=== PATIENT | female | born 1980 | race Caucasian/White ===

== ENCOUNTER 2022-08-03 15:39 | Emergency (ER) | payer OTHER, SELFPAY ==
--- NOTE | ~2022-08-03 | CT_ITS ---
EXAMINATION: CT abdomen pelvis wo con DATE: 08/03/2022 17:51 INDICATION: Back pain and hematuria TECHNIQUE: Computed tomography (CT) of the abdomen and pelvis was performed without intravenous contr ast. The dose-length product (DLP) was 691.81 mGy-cm. Automated exposure control and iterative recons truction technique were employed. COMPARISON: None FINDINGS: The lung bases are clear. The heart size is normal. The liver, spleen, pancreas, and adrena l glands are normal. The gallbladder is contracted. The kidneys are unremarkable. No pathologically e nlarged abdominal or pelvic lymph nodes are identified. The appendix is normal. A moderate volume of colonic stool is present. There is no free intraperitoneal gas or evidence of bowel obstruction. Ther e is formed stool in the nondistended terminal ileum. There is an umbilical hernia containing fat. IMPRESSION: 1. Constipation. Reviewed, dictated and finalized at location F. IMPRESSION: 1. Constipation.
[2022-08-03 16:00] VITALS: BP 152/85; PULSE 101; RESP 14; TEMP 36.6; O2SAT 100
--- NOTE | 2022-08-03 16:30 | PC.NURSE ---
Patient to the ED with complaints of middle back pain for about a year . Patient states she has asked doctors about it but has not gotten relief for it.
--- NOTE | 2022-08-03 16:58 | ED.BACK ---
HPI - Back Pain/Injury General Chief Complaint: Back Pain/Injury Stated Complaint: chronic back pain Time Seen by Provider: 08/03/22 16:33 History of Present Illness HPI Narrative: 41-year-old female with history of back pain for the last 10 years presents to the emergency department complaining of worsening back pain. Patient states over the last few years she has had intermittent back pain. Patient states she has had imaging previously. Patient denies any acute injuries. Patient states over the last few days she has had worsening back pain and today she was attempting to go through a pump convention and her back pain was so bad that she needed to be evaluated. Patient has been taking Tylenol and ibuprofen intermittently for pain. Patient states she has had pain that runs down her leg but denies any current leg pain. Patient states he is also had intermittent numbness. Patient has no prior history of back surgery. Related Data Allergies Allergy/AdvReac Type Severity Reaction Status Date / Time No Known Allergies Allergy Verified 11/02/20 11:55 Review of Systems Review of Systems: CONSTITUTIONAL: Denies fever, chills, or sweats. EYES: Denies visual changes, redness, or discharge. ENT: Denies rhinorrhea, congestion, sore throat, or otalgia. CARDIOVASCULAR: Denies chest pain, palpitations, or edema. RESPIRATORY: Denies cough or dyspnea. GASTROINTESTINAL: Denies abdominal pain, nausea, vomiting, or diarrhea. GENITOURINARY: Denies dysuria or hematuria. SKIN: Denies rash or itching. MUSCULOSKELETAL: See HPI NEUROLOGIC: Denies headache, numbness, or weakness. PSYCHIATRIC: Denies anxiety or depression. [facility] Past Medical History Medical History (Updated 08/03/22 @ 18:18 by Mingo Young MD) Chlamydia Depression Surgical History Surgical History History of robot-assisted laparoscopic hysterectomy Family History Family History Father Hypertension Grandparent Cerebrovascular accident Other Family history of coronary artery disease Social History Social History Smoking status: Current every day smoker Second hand tobacco smoke exposure: No Alcohol intake: current Exam Narrative: APPEARANCE: Well appearing, no pain, no distress, well-nourished. HEAD: normocephalic, atraumatic. EYES: PERRLA/EOMI, conjunctivae clear. NOSE: Normal no drainage NECK: Supple. No adenopathy, no masses. RESPIRATORY: Airway patent, respirations nonlabored. Clear to auscultation bilaterally, no rales, rhonchi, wheezing. CARDIOVASCULAR: Regular rate and rhythm without murmurs rubs or gallops. ABDOMINAL: Soft, nontender, nondistended, normal bowel sounds MUSCULOSKELETAL: Moves all extremities. Strength/ROM intact, No edema, No calf tenderness. Some midline back tenderness to palpation. NEURO: Alert. Cranial nerves II through XII intact. Grossly intact. Normal strength and reflexes. SKIN: Warm, dry. Normal Color Course Course Emergency Course: Patient's UA showed no evidence of infection but did have some hematuria. CT scan was ordered to rule out ureteral lithiasis. CT scan showed evidence of constipation. Patient was advised treatment of her back pain at home along with treating of her constipation. Patient was updated results of her imaging. All question concerns were addressed Vital Signs Vital signs: Vital Signs Temperature 97.9 F 08/03/22 16:00 Pulse Rate 101 H 08/03/22 16:00 Respiratory Rate 14 08/03/22 16:00 Blood Pressure 152/85 H 08/03/22 16:00 Pulse Oximetry 100 08/03/22 16:00 Oxygen Delivery Room Air 08/03/22 16:00 Temperature 97.8 F 08/03/22 18:21 Pulse Rate 89 08/03/22 18:21 Respiratory Rate 18 08/03/22 18:21 Blood Pressure 139/88 08/03/22 18:21 Pulse Oximetry 100 08/03/22 18:21 Oxygen Delivery Room
[2022-08-03 17:30] LABS: Add Urine Microscopic? YES; Appearance Urine Cloudy (Clear); Bilirubin Urine Negative (Negative); Blood Urine 2+ (Negative); Color Urine Yellow (Yellow); Glucose Urine UA Negative (Negative); Ketones Urine Negative (Negative); Leukocyte Esterase Ur Negative LEU/UL (Negative); Mucus Urine Rare /lpf; Nitrate Urine Negative (Negative); Protein Urine Negative (Negative); Specific Grav Ur 1.018 (1.001-1.035); Squamous Epithelial Cell Urine Moderate /hpf (Few); Urobilinogen Urine Negative mg/dL (<2.0); WBC Urine 0-3 /hpf
[2022-08-03 17:46] LABS: Pregnancy On Board Control Positive; Urine Pregnancy Test Negative
[2022-08-03 18:21] VITALS: BP 139/88; PULSE 89; RESP 18; TEMP 36.6; O2SAT 100
== END 2022-08-03 18:27 | disposition home or self-care (01) ==
PROVIDERS: Emergency Provider Emergency Medicine; PCP Physician Assistant
DX: M54.50 Low back pain, unspecified (principal); K59.00 Constipation, unspecified; F17.200 Nicotine dependence, unspecified, uncomplicated
CPT/HCPCS: 74176; 81001; 81025; 99284

== ENCOUNTER 2024-08-12 18:24 | Emergency (ER) | payer MEDICAID, SELFPAY ==
--- NOTE | ~2024-08-12 | CT_ITS ---
EXAMINATION: 1. CT facial & cervical spine wo DATE: 08/12/2024 19:31 INDICATION: Head injury with facial/dental injury. TECHNIQUE: 1. Computed tomography (CT) of the maxillofacial region and of the cervical spine were performed with out intravenous contrast. Sagittal and coronal reconstructions of both regions were obtained. Automat ed exposure control and iterative reconstruction technique were employed. The dose-length product was 420.96 mGy-cm. COMPARISON: None. FINDINGS: Maxillofacial CT: The bilateral maxillary central incisors are loose within their sockets with the roots displaced slig htly anteriorly and inferiorly. In minimal displacement of a transverse fracture which extends from f rom the anterior to the posterior margin of both of the sockets and across the bone between the socke ts of both incisors. There is scattered dental disease most prominent at the left maxillary canine an d multiple bilateral maxillary molars and premolars with associated prominent periapical lucencies. B ilateral temporal manubrial joints are normal alignment. No other maxillofacial fractures identified. Specifically the mandible, nasal bones, zygomatic arches and oquendo of the orbits and paranasal sinus es are all intact. There are a few small mucous retention cyst in the bilateral maxillary sinuses. Or bits are normal. There is slight rightward bowing of the anterior nasal septum without fracture. Ther e is soft tissue swelling at the central aspect of the upper lip. Cervical spine CT: Alignment is normal. Vertebral body heights are normal. No fracture. Severe disc height loss at C6-C7 with posterior endplate osteophytes resulting in mild central canal stenosis at this level. Remainin g disc heights are normal. Severe facet osteoarthritis on the right at C2-C3. Moderate facet osteoart hritis on the left at C2-C3 and bilaterally at C3-C4. Mild facet osteoarthritis and more caudal cervi jewel spine. There is also multilevel minimal to mild cervical uncovertebral osteoarthritis. Minimal ne ural foraminal stenosis at a few levels. Cervical soft tissues are unremarkable. Visualized upper odalis gs are clear. IMPRESSION: 1. Fracture involving the sockets of the left and right central maxillary incisors which are lucent t heir sockets. No other maxillofacial fractures. 2. Significant dental disease or posteriorly at the left and right maxilla. 3. Severe disc height loss posterior endplate osteophytic resulting in mild central canal stenosis at C6-C7. Otherwise minimal to mild cervical spondylosis. Reviewed, dictated and finalized at location A. IMPRESSION: 1. Fracture involving the sockets of the left and right central maxillary incis ors which are lucent their sockets. No other maxillofacial fractures. 2. Significant dental disease or posteriorly at the left and right maxilla. 3. Severe disc height loss posterior endplate osteophytic resulting in mild aye tral canal stenosis at C6-C7. Otherwise minimal to mild cervical spondylosis.
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
[2024-08-12 18:32] VITALS: BP 158/86; PULSE 95; RESP 20; TEMP 36.7; O2SAT 100
[2024-08-12] MEDS: ACETAMINOPHEN 500 MG TABLET 1000 MG PO (19:20)
[2024-08-12] MEDS: TETANUS,DIPHTHERIA,AC PERTUSSIS ADULT (0.5 ML) BOOSTRIX IM (19:20)
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
[2024-08-12 21:14] VITALS: BP 146/82; PULSE 88; RESP 16; O2SAT 100
[2024-08-12 22:50] VITALS: BP 132/78; PULSE 82; RESP 19; O2SAT 99
== END 2024-08-12 22:50 | disposition home or self-care (01) ==
PROVIDERS: Emergency Provider Physician Assistant; PCP Physician Assistant
DX: S02.42XA Fracture of alveolus of maxilla, initial encounter for closed fracture (principal); S01.511A Laceration without foreign body of lip, initial encounter; Z23 Encounter for immunization; F17.200 Nicotine dependence, unspecified, uncomplicated; Z90.710 Acquired absence of both cervix and uterus; M48.02 Spinal stenosis, cervical region; M47.812 Spondylosis without myelopathy or radiculopathy, cervical region; Y04.2XXA Assault by strike against or bumped into by another person, initial encounter
CPT/HCPCS: 70450; 70486; 72125; 90471; 90715; 99284; A9270

== ENCOUNTER 2025-06-23 13:12 | Emergency (ER) | payer OTHER, SELFPAY ==
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
[2025-06-23 13:18] VITALS: BP 157/81; PULSE 95; RESP 16; TEMP 36.6; O2SAT 100
--- OUTSIDE RECORDS SUMMARY | 2025-06-23 13:24 | XMS_ITS | Encounter Summary ---
Author Organization [facility] Address [address] [place] [address] Care Team Providers Care Temperature Regulator Name Role Phone Unavailable Primary Care Provider Unavailabl e Reason for Visit * Reason Onset Date Comments General 01/07/2019 Encounter Details Date Type Department Care Team (Late st Contact Info) Description 01/07/2019 Telephone [facility]/ EVALUATION UNIT [address] [facility] [place] [address] Kalie Bell RN General Social History Tobacco Use Types Packs/Day Years Used Date Smoking Tobacco: Every Day Cigarettes Smokeless Tobacco: Never Alcohol Use Standard Drinks/Week Comments No 0 (1 standard drink = 0.6 oz pur e alcohol) Comments Yes Sex and Gender Information Value Date Recorded Sex Assigned at Not on file Legal Sex Female 6:32 AM CDT Gender Identity Not on file Sexual Orientation Not on file documented as of this encounter Miscellaneous Notes * Telephone Encounter - Kalie Morales RN - 01/07/2019 9:34 AM CDT Avelina called on behalf of patient for Albuterol inhaler refill. OK per Dr. Kim for 1 refill. Communicated to pharmacist. documented in this encounter Plan of Treatment Not on file documented as of this encounter Visit Diagnoses Not on filedocumented in this encounter
--- OUTSIDE RECORDS SUMMARY | 2025-06-23 13:24 | XMS_ITS | Clinical Summary ---
Author Organization [facility] Address [address] [place] [address] Care Team Providers Care [place] Teacher Name Role Phone Unavailable Primary Care Provider Unavailabl e Source Comments [facility],non-owned Affiliates and Associated Physician Practices is amultiple site organization consisting of ambulatory clinics and hospital sitesin [place], [place], [place] and [place]. This disclosure is being madepursuant to the Care Everywhere program and may not contain all information available regarding this patient. Last updated 18.[facility] Allergies No known active allergies Medications * Be aware that medications may not be up to date on this document. Alwaysverify current medications with the patient. Vit-Fe Fumarate-FA ( VITAMIN) 28-0.8 MG tablet Take 1 tablet by mouth once daily Active albuterol HFA (PROAIR HFA) 108 (90 BASE) MCG/ACT inhalerIndication s:Severe persistent asthma without complication (HCC),Supervision of high risk in first trimester (HCC),Maternal asthma complicating (HCC) Inhale 2 puffs by mouth every 2 hours as needed for Shortness of Breath or Wheezing 8 g 3 8 Active loratadine (CLARITIN) 10 MG tabletIndications :Severe persistent asthma without complication (HCC),Supervision of high risk in first trimester (HCC),Maternal asthma complicating (HCC) Take 1 tablet by mouth once daily 30 tablet 3 8 Active Active Problems Patient Care Coordination No te Formatting of this note migh t be different from the original. 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 Dodd's office Nuchal translucency normal on day of visit (11w5d) Recommend twice weekly testing initiated at 32 weeks gestation Supervision of high risk in first trim mario 06/13/2018 Overview (06/13/2018): PNC with Dr. Dodd PNL not available at time of consult Recommend delivery per routine obstetric indications History of delivery, currently in first trimester 06/13/2018 Overview (06/13/2018): G1: 26 wk after PPROM; was 2'12 G2: @ term, not on 17OHP G3: @ term, not on 17OHP G4: Current Given that the biggest risk factor for a delivery is a history of a delivery, we would recommend administration of 17OHP weekly between 16-36 weeks. Although her delivery is fairly remote, she still has a significant increase in her risk for delivery and would likely benefit, especially given that there are few risks to 17OHP. We would also recommend screening cervical lengths between 16-28 weeks, at two week intervals or more frequently if there is a concern for shortened cervix. If her cervix shortens <25 mm, consideration may be given to an ultrasound indicated cerclage. Maternal asthma complicating 8 Overview (06/13/2018): Severe persistent currently however pt only taking Albuterol PRN Recommend adding Symbicort for more optimal control of symptoms (pt left and no pharmacy listed in computer - attempts to contact after visit to find out which pharmacy she would like to use have not been successful thus far). Peak flow meter and teaching done at time of consult Tobacco smoking affecting in first tri mester 06/13/2018 Overview (06/13/2018): Encouraged cessation Can consider wellbutrin for assistance in cessation Encounter for screening for nuchal tra nslucency Encounter to establish gestational age using ult rasound Family History Medical History Relation Name Comments Cancer - Colon Mother Cancer - Lung Paternal Aunt 1 Cancer - Other Paternal Aunt 2 bone cancer Cancer - Liver Paternal Aunt 3 Relation Name Status Comments Mother Paternal Aunt 1 Paternal Aunt 2 bone cancer Paternal Aunt 3 Social History Tobacco Use Types Packs/Day Years Used Date Smoking Tobacco: Every Day Cigarettes Smokeless Tobacco: Never Tobacco Cessation:Ready to Q uit: No; Counseling Given: Yes Alcohol Use Standard Drinks/Week Comments No 0 (1 standard drink = 0.6 oz pur e alcohol) Comments No Sex and Gender Information Value Date Recorded Sex Assigned at Not on file Legal Sex Female 6:32 AM CDT Gender Identity Not on file Sexual Orientation Not on file Last Filed Vital Signs Vital Sign Reading Time Taken Comments Blood Pressure 120/80 10/17/2018 3:49 PM OUTSIDE SALES ACCOUNT EXECUTIVE Pulse 76 06/12/2018 4:05 PM CDT Temperature - - Respiratory Rate 18 06/12/2018 4:05 PM CDT Oxygen Saturation - - Inhaled Oxygen Concentration - - Weight 105.2 kg (232 lb) 10/17/2018 3:49 PM OUTSIDE SALES ACCOUNT EXECUTIVE Height 165.1 cm (5' 5) 10/17/2018 3:49 PM OUTSIDE SALES ACCOUNT EXECUTIVE Body Mass Index 38.61 10/17/2018 3:49 PM OUTSIDE SALES ACCOUNT EXECUTIVE Plan of Treatment Health Maintenance Due Date Last Done Comments LIPID TESTING 1980 MAMMOGRAM 1980 HIV SCREENING 1995 HEPATITIS C SCREENING 12/04/1998 DTAP/TDAP/TD VACCINES (1 - Tdap) 1999 HEPATITIS B VACCINE (1 of 3 - 19+ 3-dose series) 1999 HPV VACCINE (1 - 3-dose SCDM series) 2007 COVID-19 VACCINE ( - 2023-2 5 season) 2024 DEPRESSION SCREENING 10/22/2024 INFLUENZA VACCINE (#1) 2025 ZOSTER VACCINE (1 of 2) 2030 HIB VACCINE Aged Out No longer eligi ble based on patient's age to complete this topic MENINGOCOCCAL (Group B) VACC INE SHARED DECISION-MAKING Aged Out No longer eligibl e based on patient's age to complete this topic MENINGOCOCCAL GROUPS A/C/Y/W VACCINE Aged Out No longer eligible b ased on patient's age to complete this topic PNEUMOCOCCAL VACCINE Aged Out No long er eligible based on patient's age to complete this topic Insurance [facility] [place] [address] [place] [address] [facility]
--- OUTSIDE RECORDS SUMMARY | 2025-06-23 17:15 | XMS_ITS | Clinical Summary ---
Author Organization [facility] Address [address] [place] [address] Care Team Providers Care Manager Account Management Name Role Phone Unavailable Primary Care Provider Unavailabl e Source Comments [facility],non-owned Affiliates and Associated Physician Practices is amultiple site organization consisting of ambulatory clinics and hospital sitesin [place], [place], [place] and [place]. This disclosure is being madepursuant to the Care Everywhere program and may not contain all information available regarding this patient. Last updated 18.[employer] [facility] Allergies No known active allergies Medications * [...] Comments Blood Pressure 120/80 10/17/2018 3:49 PM SENSOR SPECIALIST Pulse 76 06/12/2018 4:05 PM CDT Temperature - - Respiratory Rate 18 06/12/2018 4:05 PM CDT Oxygen Saturation - - Inhaled Oxygen Concentration - - Weight 105.2 kg (232 lb) 10/17/2018 3:49 PM SENSOR SPECIALIST Height 165.1 cm (5' 5) 10/17/2018 3:49 PM SENSOR SPECIALIST Body Mass Index 38.61 10/17/2018 3:49 PM SENSOR SPECIALIST Plan of Treatment Health Maintenance Due Date [...] patient's age to complete this topic Insurance [facility] [place] [address] [facility]
--- OUTSIDE RECORDS SUMMARY | 2025-06-23 17:15 | XMS_ITS | Encounter Summary ---
Author Organization [facility] Address [address] [place] [address] Care Team Providers Care Pharmacy Graduate Intern Name Role Phone Unavailable Primary Care Provider Unavailabl e Reason for Visit * Reason Onset Date Comments General 01/07/2019 Encounter Details Date Type Department Care Team (Late st Contact Info) Description 01/07/2019 Telephone [facility]/ EVALUATION UNIT [address] [place] [address] Kalie Bell RN General Social History Tobacco [...]
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
--- NOTE | 2025-06-23 17:51 | PC.NURSE ---
Patient seen leaving front door crying after talking to Tavon Jasso PA-C
== END 2025-06-23 18:00 | disposition left against medical advice (07) ==
PROVIDERS: Emergency Provider Physician Assistant; PCP Physician Assistant
DX: L03.213 Periorbital cellulitis (principal); S80.922A Unspecified superficial injury of left lower leg, initial encounter; F17.210 Nicotine dependence, cigarettes, uncomplicated
CPT/HCPCS: 99281